=== PATIENT | male | born 1960 | race African-American/Black ===

== ENCOUNTER 2018-03-05 17:45 | Emergency (ER) | payer MEDICAID, OTHER ==
[~2018-03-05] VITALS: Ht 185.4 cm; Wt 120.0 kg
[2018-03-05 22:28] VITALS: BP 150/81
== END 2018-03-05 22:29 | disposition home or self-care (01) ==
LOC: ER 17:45
DX: M79.89 Other specified soft tissue disorders (principal); Z86.718 Personal history of other venous thrombosis and embolism; Z96.649 Presence of unspecified artificial hip joint
CPT/HCPCS: 93971; 99284